=== PATIENT | male | born 1985 | race Two or more races ===

== ENCOUNTER 2019-05-30 14:07 | Emergency (ER) | payer OTHER ==
[~2019-05-30] VITALS: Ht 180.3 cm; Wt 60.0 kg
[2019-05-30 14:11] VITALS: Ht 180.3 cm; Wt 60.0 kg
[2019-05-30] MEDS ORDERED: ENALAPRILAT 1.25 MG INJ IV ONE (14:30)
[2019-05-30] MEDS ORDERED: LORAZEPAM 2 MG INJ IV ONE (15:30)
[2019-05-30] MEDS ORDERED: hydrALAzine 20 MG INJ IV ONE (16:30)
[2019-05-30 16:41] VITALS: BP 110/72; PULSE 123; RESP 20
--- NOTE | 2019-05-30 16:44 | ERD ---
ER Documentation Chief Complaint Chief Complaint medical clearance for booking c/o chest pain HPI This is a 34-year-old man without significant past medical history brought in by [employer] officers for medical clearance after being arrested for damage to public and private property as witnessed by bystanders. After being arrested patient complained of chest pain but then after arrival to the ER denied complaints of chest pain. He denies shortness of breath, no cough, no fevers or chills, no vomiting or diarrhea. ROS All systems reviewed and are negative except as per history of present illness. Allergies Allergies: Coded Allergies: No Known Allergy (Unverified , 05/30/19) PMhx/Soc Hypertension? Hx Neurological Disorder: No Hx Respiratory Disorders: No Hx Cardiac Disorders: Yes (HTN) Hx Psychiatric Problems: No Hx Miscellaneous Medical Probl: No Smoking Status: Unknown if ever smoked FmHx Family History: No diabetes Physical Exam Vitals Vital Signs Date Temp Pulse Resp B/P (MAP) Pulse Ox O2 O2 Flow FiO2 Time Delivery Rate 05/30/19 123 20 110/72 100 Room Air 16:41 (85) 05/30/19 88 18 123/107 100 Room Air 16:00 (112) 05/30/19 74 20 127/112 98 Room Air 15:09 (117) 05/30/19 97.8 78 18 148/101 97 14:11 (117) Physical Exam GENERAL: Well-developed, well-nourished, well-hydrated, appears intoxicated, afebrile NEURO: Alert and oriented 3, cranial nerves II through XII intact bilaterally, pupils equal round reactive to light, no focal deficits or facial asymmetry CARDIAC: Tachycardic and regular, no murmurs rubs or gallops LUNGS: Clear bilaterally no wheezing crackles or stridor SKIN: Warm and dry to touch, no abrasions, contusions, or hematomas, no lacerations, no ecchymosis, no target lesions, and without ulcers EXTREMITIES: No clubbing cyanosis or edema, calves are bilaterally symmetrical, no Homans sign, no popliteal cord sign. Distal pulses equal and bilateral PSYCH: Agitated Result Diagram: 05/30/19 1445 05/30/19 1445 Results 24 hrs Laboratory Tests Test 05/30/19 14:45 White Blood Count 5.8 10^3/ul Red Blood Count 4.54 10^6/ul Hemoglobin 14.4 g/dl Hematocrit 42.5 % Mean Corpuscular Volume 93.6 fl Mean Corpuscular Hemoglobin 31.7 pg Mean Corpuscular Hemoglobin Concent 33.9 g/dl Red Cell Distribution Width 12.2 % Platelet Count 340 10^3/UL Mean Platelet Volume 8.8 fl Immature Granulocytes % 0.200 % Neutrophils % 53.0 % Lymphocytes % 32.4 % Monocytes % 9.7 % Eosinophils % 3.5 % Basophils % 1.2 % Nucleated Red Blood Cells % 0.0 /100WBC Immature Granulocytes # 0.010 10^3/ul Neutrophils # 3.1 10^3/ul Lymphocytes # 1.9 10^3/ul Monocytes # 0.6 10^3/ul Eosinophils # 0.2 10^3/ul Basophils # 0.1 10^3/ul Nucleated Red Blood Cells # 0.0 10^3/ul Sodium Level 141 mmol/L Potassium Level 4.0 mmol/L Chloride Level 104 mmol/L Carbon Dioxide Level 30 mmol/L Anion Gap 7 Blood Urea Nitrogen 21 mg/dl Creatinine 0.97 mg/dl Est Glomerular Filtrat Rate mL/min > 60 mL/min Glucose Level 101 mg/dl Calcium Level 9.7 mg/dl Total Bilirubin 0.3 mg/dl Direct Bilirubin 0.00 mg/dl Indirect Bilirubin 0.3 mg/dl Aspartate Amino Transf (AST/SGOT) 24 IU/L Alanine Aminotransferase (ALT/SGPT) 27 IU/L Alkaline Phosphatase 69 IU/L Troponin I < 0.012 ng/ml Total Protein 7.8 g/dl Albumin 4.2 g/dl Globulin 3.60 g/dl Albumin/Globulin Ratio 1.16 Lipase 127 U/L Current Medications Medications Dose Sig/Bobby Start Time Status Last (Trade) Ordered Route PRN Stop Time Admin Dose Reason Admin Enalaprilat 1.25 mg ONCE ONCE 05/30/19 DC 05/30/19 (Vasotec Iv) IV 14:30 05/30/19 14:45 14:31 Lorazepam 1 mg ONCE ONCE 05/30/19 DC 05/30/19 (Ativan) IV 15:30 05/30/19 15:22 15:31 Hydralazine 20 mg ONCE ONCE 05/30/19 DC 05/30/19 HCl IV 16:30 05/30/19 16:09 (Apresoline) 16:31 Procedures/MDM IV line was established, patient was placed on air sampling and monitoring, rhythm revealed sinus tachycardia at 100bpm, patient was afebrile. EKG performed, read by allen a sinus tachycardia at 128 bpm, normal axis, narrow QRS complex, no concerning ST elevations or depressions noted. Overall consistent with tachyphylaxis developing after hydralazine therapy for hy pertension CBC and electrolytes are normal, liver function tests were normal, troponin was negative. I initially treated the patient with enalapril 1.25 mg IV x1 for hypertension although patient remained agitated and hypertensive so I later treated him with lorazepam 0.5 mg IV x1 followed by hydralazine 20 mg IV x1. Patient's agitation and blood pressure improved completely although he did develop mild tachyphylaxis after hydralazine. Patient is asymptomatic at this time and looks well and will be discharged on her [employer] custody. Differential diagnoses considered, included but not limited to acute coronary syndrome, pulmonary embolism, aortic dissection, abdominal aortic aneurysm, seps is, stroke, meningitis, encephalitis, pneumonia, appendicitis, cholecystitis, bowel obstruction, pyelonephritis, nephrolithiasis, cystitis, as well as metabolic, hematologic, and electrolyte abnormalities. As well as abscess, cellulitis, fractures, and dislocations. Patient feels much better at this time, and vital signs are normal, symptoms have improved. I did give strict instructions to return to the ED if symptoms continue or worsen, patient will otherwise follow-up with primary care mike witt. Patient understood instructions and agreed to plan. Disclaimer: Inadvertent spelling and grammatical errors are likely due to EHR/dictation software use and do not reflect on the overall quality of patient care. Also, please note that the electronic time recorded on this note does not necessarily reflect the actual time of the patient encounter. Departure Diagnosis: Primary Impression: Encounter for medical clearance for patient hold Additional Impressions: Hypertension Hypertension type: essential hypertension Qualified Codes: I10 - Essential (primary) hypertension Anxiety Condition: Good Patient Instructions: Anxiety Reaction, Hypertension, To Be Confirmed, Long Term Clearance JACKELIN CARRIZALES MD May 30, 2019 16:44
== END 2019-05-30 17:10 ==
LOC: E/R 14:07
DX: Z04.6 Encounter for general psychiatric examination, requested by authority (principal); I10 Essential (primary) hypertension; F41.9 Anxiety disorder, unspecified
CPT/HCPCS: 36415; 80053; 83690; 84484; 85025; 93005; 96374; 96375; 99284; J0360; J2060